=== PATIENT | male | born 1960 | race Hispanic/Latino ===

== ENCOUNTER 2024-04-01 12:58 | Inpatient (IN) | payer OTHER, BC ==
[~2024-04-01] VITALS: Ht 182.9 cm; Wt 124.0 kg
[~2024-04-01 12:58] MED LIST: ATORVASTATIN CA40 MG PO; BASAGLAR K100 UNIT/1 SUB-Q; FUROSEMIDE40 MG PO; LO-DOSE ASPIRIN81 MG PO; LOSARTAN POTASS25 MG PO; METOPROLOL SUCC25 MG PO; NOVOLOG FL100 UNIT/1 SUB-Q; PANTOPRAZOLE SO40 MG PO; SPIRONOLACTONE25 MG PO; WARFARIN SODIUM5 MG PO
[2024-04-01] MEDS ORDERED: ALBUTEROL/IPRATROPIUM 3 ML NEB INH PRN (13:15)
[2024-04-01 13:16] LABS: BASOPHILS 1.3 % (0-2); HEMATOCRIT 41.4 % (35.0-50.0); HEMOGLOBIN 13.2 g/dL (12.0-18.0); LYMPHOCYTES 18.1 % (24-44); MCHC 31.9 g/dl (30-36); MCV 87.8 fl (81-99); MONOCYTES 10.5 % (0-12); NEUTROPHILS 66.1 % (39-80); PLATELET COUNT 280 K/uL (140-440); RBC 4.71 M/ul (4.3-5.7); RDW 16.8 (10.5-15.0)
[2024-04-01] MEDS ORDERED: FUROSEMIDE 100 MG/10 ML VIAL IV ONE (13:30)
[2024-04-01] MEDS ORDERED: NITROGLYCERIN 0.4 MG/HR 1 EA TDSY TD ONE (13:30)
[2024-04-01] MEDS ORDERED: ENALAPRILAT DIHYDRATE 1.25 MG/ML VIAL IV ONE (13:30)
[2024-04-01 13:39] LABS: ALBUMIN 3.1 g/dL (3.4-5.0); ALBUMIN/GLOBULIN RATIO 0.63 (1.1-2.4); ANION GAP 12.1 (7-21); BILIRUBIN, TOTAL 0.7 ng/dL (0.2-1.0); CALCIUM 8.2 mg/dL (8.5-10.1); MAGNESIUM 1.7 mg/dL (1.8-2.4); POTASSIUM 4.1 mmol/L (3.5-5.1)
[2024-04-01] MEDS ORDERED: ondansetron HCL 4 MG/2 ML VIAL IV PRN (16:00)
[2024-04-01] MEDS ORDERED: ACETAMINOPHEN 325 MG TAB PO PRN (16:00)
[2024-04-01] MEDS ORDERED: DEXTROSE 50% 50 ML SYR IV PRN ×2 (16:30)
[2024-04-01] MEDS ORDERED: GLUCAGON,HUMAN RECOMBINANT 1 MG/ML VIAL SUB-Q PRN (16:30)
[2024-04-01] MEDS ORDERED: IBLOOD GLUCOSE TEST STRIP 1 EA TEST XX PRN (16:30)
[2024-04-01] MEDS ORDERED: DEXTROSE 5% 1,000 ML IV PRN (16:30)
[2024-04-01 16:34] LABS: INR 2.07 (0.80-1.30); PROTIME 22.4 Sec (11.2-14.2)
[2024-04-01 16:45] VITALS: BP 115/65
--- NOTE | 2024-04-01 16:57 | NUR ---
Medications reconciled using pharmacy records and patient interview. Patient recently began warfarin, [facility] patient, first visit 02/18/24
[2024-04-01] MEDS ORDERED: WARFARIN SOD 5 MG TAB PO ONE (17:00)
[2024-04-01] MEDS ORDERED: INSULIN LISPRO 100 UNIT/ML ML SUB-Q SCH (17:00)
[2024-04-01] MEDS ORDERED: IBLOOD GLUCOSE TEST STRIP 1 EA TEST VI SCH (17:00)
--- NOTE | 2024-04-01 17:00 | NUR ---
PT ARRIVES TO UNIT, WALKS TO BED INDEPENDENTLY, USES URINAL INDEPENDENTLY. PT DENIES PAIN OR SOB AT THIS TIME. SIGNIFICANT OTHER, ALVAREZ AT THE BEDSIDE. LUNG SOUNDS CLEAR, OCCASIONAL COUGH WITH THICK WHITE SPUTUM PRODUCTION PRESENT. PT EATS DINNER TRAY W/O DIFFICULTY. VSS. PT EDUCATION ON FLUID RESTRICTION AND DIET, PT AND FAMILY VERBALIZE UNDERSTANDING, STATE NO QUESTIONS AT THIS TIME. PT STATES NO CURRENT NEEDS. CALL LIGHT WITHIN REACH.
[2024-04-01] MEDS ORDERED: SENNOSIDES/DOCUSATE 1 EA TAB PO PRN (18:00)
[2024-04-01 18:24] VITALS: BP 115/65
--- NOTE | 2024-04-01 19:05 | NUR ---
REPORT RECEIVED FROM MANAV BUNDY. pt UP IN THE . INDEPENDENT IN . pt DENIES ANY NEEDS AT THIS TIME. CALL LIGHT WITHIN REACH.
[2024-04-01 20:13] VITALS: BP 107/71
--- NOTE | 2024-04-01 20:50 | NUR ---
ASSESSMENT AND VITAL SIGNS DONE. pt LUNGS CLEAR. SWELLING HAS GONE DOWN IN HIS ANKLES. BG CHECKED WITH A RESULTS OF 155. SS INSULIN AND LONG LASTING INSULIN ADMINISTERED. pt REQUESTING A SNACK AT THIS TIME. CALL LIGHT WITHIN REACH. pt DENIES ANY OTHER NEEDS AT THIS TIME. CALL LIGHT WITHIN REACH.
[2024-04-01] MEDS ORDERED: INSULIN GLARGINE-YFGN 100 UNIT/ML ML SUB-Q SCH (21:00)
[2024-04-01] MEDS ORDERED: MELATONIN 3 MG TAB PO PRN (21:00)
--- NOTE | 2024-04-01 21:59 | EKG ---
[facility] [address] [place] [address] Signed Normal sinus rhythm Left anterior fascicular block Anterolateral infarct (cited on or before 21-JAN-2024) Abnormal ECG When compared with ECG of 21-JAN-2024 21:16, Questionable change in initial forces of Anterior leads Confirmed by López Friedman MD () on 04/01/2024 9:58:56 PM Electronically Signed By: LÓPEZ FRIEDMAN MD 04/01/24 2159 PATIENT NAME: AFSHAN SRMERLYNMAY HANNA Electrocardiogram DATE OF : 62 PHYSICIAN: LÓPEZ FRIEDMAN MD REPORT #: [id number] REPORT IS CONFIDENTIAL AND NOT TO BE RELEASED WITHOUT AUTHORIZATION
--- NOTE | 2024-04-01 22:35 | NUR ---
CALL LIGHT ANSWERED, pt REPORTS SOB. THIS RN IN ROOM TO ASSESS. pt AWAKE AND RESTING IN BED, INTERMITENT COUGH NOTED. RT CALLED AND ALSO IN ROOM. SPO2 94-97% ON RA, HR 90'S. HOB ELEVATED AND pt REPOSITIONED, COUGH SUBSIDED. LUNG SOUNDS CLEAR, NO WHEEZES NOTED. pt DENEIS ANXIETY. SOB IMPROVED. pt DENIES ADDITIONAL NEEDS, CALL LIGHT IN REACH. URINAL EMPTIED, 275MLS OUTPUT NOTED AND CHARTED.
--- NOTE | 2024-04-01 22:55 | NUR ---
ROUNDED ON pt TO REASSESS. pt REMASIN AWAKE AND RESTING QUIETLY IN BED, WATCHING TV. REPORTS SOB IMPROVING, NO DISTRESS NOTED. SPO2 ON RA REMAINS IN UPPER 90'S, HR WNL. NO NEEDS OR CONCERNS, CALL LIGHT IN REACH.
--- NOTE | 2024-04-01 23:32 | NUR ---
pt RESTING IN THE BED. RR EVEN AND UNLABORED. CALL LIGHT WITHIN REACH.
[2024-04-02] VITALS (8 sets, daily range): BP systolic 101–130; BP diastolic 55–83
--- NOTE | 2024-04-02 01:32 | NUR ---
PATIENT RESTING IN BED WITH EYES CLOSED. AWAKENS EASILY. VS AND I&Os OBTAINED AND RECORDED. FRESH ICE WATER PROVIDED. SNACKS PROVIDED. PATIENT DENIES FURTHER NEEDS. CALL LIGHT IN REACH.
--- NOTE | 2024-04-02 03:30 | NUR ---
pt RESTING IN THE BED WITH EYES CLOSED. RR EVEN AND UNLABORED. CALL LIGHT WITHIN REACH.
[2024-04-02 05:31] LABS: BASOPHILS 0.2 % (0-2); EOSINOPHILS 6.3 % (0-6); HEMATOCRIT 35.6 % (35.0-50.0); HEMOGLOBIN 11.6 g/dL (12.0-18.0); LYMPHOCYTES 15.5 % (24-44); MCH 27.9 (27-36); MCHC 32.6 g/dl (30-36); MCV 85.6 fl (81-99); MONOCYTES 8.9 % (0-12); NEUTROPHILS 69.1 % (39-80); PLATELET COUNT 265 K/uL (140-440); RBC 4.16 M/ul (4.3-5.7); RDW 16.8 (10.5-15.0)
--- NOTE | 2024-04-02 05:36 | NUR ---
PATIENT RESTING IN BED WITH EYES CLOSED. AWAKENS EASILY. VS, I&Os, AND STANDING WEIGHT OBTAINED AND RECORDED. SNACKS PROVIDED PER PATIENT REQUEST. NO FURTHER NEEDS. CALL LIGHT IN REACH.
[2024-04-02 05:51] LABS: ALBUMIN 2.7 g/dL (3.4-5.0); ALBUMIN/GLOBULIN RATIO 0.68 (1.1-2.4); ANION GAP 11.7 (7-21); BILIRUBIN, TOTAL 0.7 ng/dL (0.2-1.0); CALCIUM 8.2 mg/dL (8.5-10.1); CREATININE, SERUM 0.95 mg/dL (0.70-1.30); MAGNESIUM 1.7 mg/dL (1.8-2.4); PHOSPHORUS, INORGANIC 5.2 mg/dL (2.5-4.9); POTASSIUM 3.7 mmol/L (3.5-5.1); PROTEIN, TOTAL 6.7 g/dL (6.4-8.2)
[2024-04-02 05:56] LABS: INR 2.84 (0.80-1.30); PROTIME 29.5 Sec (11.2-14.2)
--- NOTE | 2024-04-02 05:59 | NUR ---
pt RESTING IN THE BED. DAILY WEIGHT DONE. pt DENIES ANY NEEDS AT THIS TIME. CALL LIGHT WITHIN REACH.
--- NOTE | 2024-04-02 07:51 | NUR ---
UR CLINICAL REVIEW: [facility] FOR HEART FAILURE [facility] 04/01/24 @ 1601 STATUS MATCHES ORDER AUTH PENDING, WILL SEND CLINICALS UPON REQUEST PLAN TO DC TO HOME WHEN STABLE 04/03/24
--- NOTE | 2024-04-02 08:01 | NUR ---
RECIEVED REPORT FROM [facility] NURSE AT 0720. PT IS CURRENTLY SITTING UP IN CHAIR ON THE PHONE. PT REQUESTED COFFEE AND STATES THAT HE DOESN'T NEED ANYTHING ELSE. COFFEE GIVEN AND NO OTHER CARES AND NO CONCERNS AT THIS TIME CALL LIGHT WITHIN REACH.
[2024-04-02] MEDS ORDERED: FUROSEMIDE 40 MG/4 ML VIAL IV SCH ×2 (09:00→13:00)
[2024-04-02] MEDS ORDERED: MAGNESIUM CHLORIDE 64 MG TABCR PO ONE (09:45)
--- NOTE | 2024-04-02 09:48 | NUR ---
0935 Patient gregarious and looking forward to getting to go home. Expressed thanks for visit and prayer.
[2024-04-02] MEDS ORDERED: ASPIRIN 81 MG TABEC PO SCH (10:46)
[2024-04-02] MEDS ORDERED: ATORVASTATIN 40 MG TAB PO SCH (10:47)
[2024-04-02] MEDS ORDERED: METOPROLOL SUCCINATE 25 MG TABCR PO SCH (10:47)
[2024-04-02] MEDS ORDERED: PANTOPRAZOLE SODIUM 40 MG TABEC PO SCH (10:48)
--- NOTE | 2024-04-02 11:25 | NUR ---
Patient in chair at this time. Fresh linens provided by [employer]. Call light within reach, no further needs at this time.
--- NOTE | 2024-04-02 11:30 | NUR ---
UR CLINICAL REVIEW: [facility]- [facility]ETS FOR INPATIENT HEART FAILURE [facility] INPT 04/02/24 @1039 AUTH NOT REQUIRED FOR OBS, WILL NEED TO CONTACT INSURANCE FOR CHANGE STATUS AND FAX CLINICALS UPON REQUEST. PLAN TO DC HOME WHEN STABLE. 04/05/24
[2024-04-02] MEDS ORDERED: PHARMACY RENAL DOSE ADJUSTMENT 1 DOSE MISC PO SCH (12:00)
--- NOTE | 2024-04-02 13:56 | NUR ---
pt is in room with girlfriend sitting at edge of bed using his flutter valve. pt is coughing up secretions and states that he is feeling better. pt has not yet had a successful bowel movement despite senna that was given. will continue to monitor
--- NOTE | 2024-04-02 14:45 | NUR ---
Spoke with pt. He lives alone, works at the [employer]. Has not steps into his home and does not use any DME. He denies any needs and plans on dc later today or in the am.
[2024-04-02] MEDS ORDERED: WARFARIN SOD 5 MG TAB PO SCH (16:00)
[2024-04-02] MEDS ORDERED: WARFARIN PER PHARMACY PROTOCOL PO SCH (16:00)
--- NOTE | 2024-04-02 16:27 | NUR ---
PATIENT IN BED AT THIS TIME. CALL LIGHT WITHIN REACH, NO FURTHER NEEDS AT THIS TIME.
--- NOTE | 2024-04-02 17:14 | NUR ---
PT EDUCATED ON WHAT CHF WAS AND RISK FACTORS ASSOCIATED WITH IT AND HOW GA IS A FACTOR. DISCUSSED THE CHF STOPLIGHT METHOD WITH MONITORING WEIGHT, REDUCING FLUID INTAKE, RESTRICTING SALT TO 2G, EXERCISING, AND MANAGING MEDICATION. PT LISTENED INTENTLY AND ASKED QUESTIONS ABOUT HEART FAILURE SYMPTOMS, MEDICATION CHANGES, WHEN TO BE SEEN. PT VERBALIZED UNDERSTANDING AND TAUGHT BACK WAYS TO MANAGE SYMPTOMS. PT PROVIDED WITH CHF INFORMATION AND STOPLIGHT MAGNET FOR SYMPTOM REMINDER.
--- NOTE | 2024-04-02 19:10 | NUR ---
REPORT RECEIVED FROM BRUNO BUNDY. pt SITTING IN THE CHAIR. BOARD UPDATED. pt DENIES ANY NEEDS AT THIS TIME. CALL LIGHT WITHIN REACH.
--- NOTE | 2024-04-02 22:00 | NUR ---
ASSESSMENT DONE. BG CHECKED WITH A RESULTS OF 215 SS INSULIN ADMINISTERED AND LONG ACTING INSULIN ADMINISTERED PER ORDER, SEE MAR. pt REQUESTING A SNACK AT THIS TIME. PUDDING, JELLO AND CHEESE PROVIDED. pt DENIES ANY OTHER NEEDS AT THIS TIME. IV ASSESSED, WNL. CALL LIGHT WITHIN REACH.
--- NOTE | 2024-04-02 23:43 | NUR ---
pt RESTING IN THE BED WITH EYES CLOSED. RR EVEN AND UNLABORED. CALL LIGHT WITHIN REACH.
--- NOTE | 2024-04-03 02:01 | NUR ---
pt SITTING IN THE CHAIR. pt DENIES ANY OTHER NEEDS AT THIS TIME. CALL LIGHT WITHIN REACH.
--- NOTE | 2024-04-03 03:33 | NUR ---
pt RESTING IN THE BED WITH EYES CLOSED. RR EVEN AND UNLABORED. CALL LIGHT WITHIN REACH.
[2024-04-03 05:33] LABS: BASOPHILS 1.4 % (0-2); EOSINOPHILS 6.7 % (0-6); MCH 27.9 (27-36); MCHC 32.3 g/dl (30-36); MCV 86.2 fl (81-99); MONOCYTES 10.3 % (0-12); NEUTROPHILS 62.6 % (39-80); PLATELET COUNT 251 K/uL (140-440); RBC 4.29 M/ul (4.3-5.7); RDW 16.8 (10.5-15.0)
[2024-04-03 05:50] LABS: INR 2.82 (0.80-1.30); PROTIME 29.3 Sec (11.2-14.2)
[2024-04-03 05:53] LABS: ALBUMIN 2.7 g/dL (3.4-5.0); ALBUMIN/GLOBULIN RATIO 0.64 (1.1-2.4); ANION GAP 8.7 (7-21); BILIRUBIN, TOTAL 0.7 ng/dL (0.2-1.0); BUN/CREATININE RATIO 18.47 (6.0-28.6); CALCIUM 8.2 mg/dL (8.5-10.1); CREATININE, SERUM 0.92 mg/dL (0.70-1.30); MAGNESIUM 1.8 mg/dL (1.8-2.4); POTASSIUM 3.7 mmol/L (3.5-5.1); PROTEIN, TOTAL 6.9 g/dL (6.4-8.2)
[2024-04-03 06:05] VITALS: BP 134/88
--- NOTE | 2024-04-03 06:08 | NUR ---
Did AM vitals and daily wt. Patient went for a walk and did two laps in the hallway. Patient is up in chair, watching t.v. and call light is within reach.
--- NOTE | 2024-04-03 07:10 | NUR ---
RECEIVED REPORT FROM GREGOR AMBROCIO. PT UP TO CHAIR AWAKE AND ALERT, STATES NO NEEDS AT THIS TIME, CALL LIGHT WITHIN REACH.
--- NOTE | 2024-04-03 08:17 | NUR ---
PATIENT IN CHAIR RESTING. CALL LIGHT WITHIN REACH, NO FURTHER NEEDS AT THIS TIME.
--- NOTE | 2024-04-03 09:18 | NUR ---
PT UP TO CHAIR AWAKE AND ALERT, DENIES PAIN OR SOB AT THIS TIME. LUNG SOUNDS CLEAR, PT STATES HE IS COUGHING STILL, BUT HAS NO SPUTUM COMING UP WITH COUGH. 1+ PITTING EDEMA REMAINS IN FEET AND ANKLES, CAP REFILL BRISK IN BLE, NO NUMBNESS OR TINGLING PER PT. PT STATES HE HAS BEEN HAVING SMALL BMs, BUT THAT HE FEELS HE NEEDS TO "GO MORE". PT REQUESTS PRN SENNA, GIVEN. PT STATES NO FURTHER NEEDS AT THIS TIME, CALL LIGHT WITHIN REACH.
[2024-04-03 09:28] VITALS: BP 129/80
--- NOTE | 2024-04-03 10:31 | NUR ---
MD AT THE BEDSIDE DISCUSSING POC WITH PT. CALL LIGHT WITHIN REACH.
[2024-04-03] MEDS ORDERED: STIMULANT LAXA1 EACH PO (10:42)
[2024-04-03] MEDS ORDERED: FUROSEMIDE40 MG PO (10:42)
--- NOTE | 2024-04-03 11:25 | NUR ---
PT AMBULATES UNIT, THEN BACK TO ROOM, SITTING IN RECLINER, DENIES NEEDS AT THIS TIME. CALL LIGHT IN REACH.
[2024-04-03 13:08] VITALS: BP 129/80
[2024-04-03 13:09] VITALS: BP 130/81
[2024-04-03] MEDS ORDERED: WARFARIN SOD 2.5 MG TAB PO SCH (16:00)
[2024-04-07] MEDS ORDERED: ENTRESTO 24 MG1 EACH PO (14:40)
[2024-04-07] MEDS ORDERED: JARDIANCE10 MG PO (14:40)
== END 2024-04-03 13:40 | disposition home or self-care (01) | DRG 293 ==
LOC: ED 12:58 → MS 16:01
PROVIDERS: Emergency Medicine; ADMIT Family Medicine; ATTEND Family Medicine
DX: I11.0 Hypertensive heart disease with heart failure (principal); I50.9 Heart failure, unspecified; E11.9 Type 2 diabetes mellitus without complications; E83.42 Hypomagnesemia; R79.89 Other specified abnormal findings of blood chemistry; K59.00 Constipation, unspecified; K21.9 Gastro-esophageal reflux disease without esophagitis; E78.00 Pure hypercholesterolemia, unspecified; Z79.01 Long term (current) use of anticoagulants; Z95.1 Presence of aortocoronary bypass graft; Z79.899 Other long term (current) drug therapy; Z79.4 Long term (current) use of insulin; Z79.82 Long term (current) use of aspirin; Z98.890 Other specified postprocedural states
CPT/HCPCS: 36415; 71045; 80053; 83735; 83880; 84100; 84484; 85025; 85610; 93005; 93010; 94667; 96374; 96375; 99285-25; A9270; J1815; J1940